=== PATIENT | female | born 2000 | race Caucasian/White ===

== ENCOUNTER 2018-01-06 22:13 | Emergency (ER) | END 2018-01-06 23:43 | disposition home or self-care (01) ==

== ENCOUNTER 2018-02-11 09:00 | Emergency (ER) | END 2018-02-11 09:53 | disposition home or self-care (01) ==

== ENCOUNTER 2018-06-09 20:34 | Emergency (ER) | END 2018-06-09 23:41 | disposition home or self-care (01) ==